=== PATIENT | female | born 1935 | race Caucasian/White ===

== ENCOUNTER 2018-07-08 13:47 | Emergency (ER) | payer MEDICARE, MEDICAID ==
[2018-07-08 13:56] VITALS: BP 180/60
--- NOTE | 2018-07-08 14:33 | XRAY Report ---
Reason: redness, swelling, and pain Procedure Date: 07/08/2018 Accession Number: [id number] / [id number] Procedure: XR - Hand 3 View LT CPT Code: FULL RESULT: EXAM: LEFT HAND RADIOGRAPHY EXAM DATE: 07/08/2018 02:07 PM. CLINICAL HISTORY: Redness, swelling, and pain. COMPARISON: None. TECHNIQUE: 4 views. FINDINGS: Bones: Normal. No fractures or bone lesions. Joints: Normal. No subluxations. Soft Tissues: Moderate diffuse soft tissue swelling is seen. IMPRESSION: Diffuse soft tissue swelling noted. Correlate for possible cellulitis. No underlying bony abnormality. RADIA
--- NOTE | 2018-07-08 14:45 | ED Physician Documentation ---
PD HPI SKIN - Stated complaint Stated Complaint: LT HAND SWELLING - Chief complaint Chief Complaint: Ext Problem - History obtained from History obtained from: Patient, Family (who helps with translation, with consent of the patient.) - History of Present Illness Timing - onset: How many days ago (4) Timing - duration: Days (4) Timing - details: Gradual onset, Still present (no noted injury, and has had increasing redness left hand for 4 days, with swelling. No fevers nor general illness.) Location: LUE (dorsum of hand around the dorsal thenar area mostly) Quality / character: Painful, Discolored, Swelling. No: Vesicular, Draining Associated symptoms: No: Fever, Myalgias Contributing factors: No: Insect bite /sting, Recent illness Similar symptoms before: Has not had sx before Recently seen: Not recently seen Review of Systems Constitutional: denies: Fever, Chills Cardiac: denies: Chest pain / pressure Respiratory: denies: Dyspnea GI: denies: Vomiting, Diarrhea Skin: denies: Abrasion (s), Laceration (s) Neurologic: denies: Focal weakness, Numbness PD PAST MEDICAL HISTORY - Past Medical History Cardiovascular: Hypertension, Peripheral Vascular Disease, Deep vein thrombosis Respiratory: None Endocrine/Autoimmune: None GI: Other : None HEENT: Chronic hearing loss Psych: None Musculoskeletal: Osteoarthritis, Osteoporosis Derm: Other - Past Surgical History Past Surgical History: No - Present Medications Home Medications: Ambulatory Orders Medication Instructions Recorded Confirmed Losartan Potassium 50 mg PO DAILY 04/24/14 05/30/14 Thyroid 05/30/14 05/30/14 Levothyroxine Sodium [Levoxyl] 25 mcg PO DAILY #14 tablet 06/21/14 Cephalexin [Keflex] 500 mg PO Q6H #20 capsule 07/08/18 Hydrocodone/Acetaminophen [[place] 1 each PO Q6H PRN #10 tablet 07/08/18 5-325 Tablet] - Allergies Allergies/Adverse Reactions: Allergies Allergy/AdvReac Type Severity Reaction Status Date / Time ampicillin Allergy Hives Verified 06/21/14 10:31 - Social History Does the pt smoke?: No Smoking Status: Never smoker Does the pt drink ETOH?: No Does the pt have substance abuse?: No - Immunizations Immunizations are current?: No - POLST Patient has POLST: No PD ED PE NORMAL - Vitals Vital signs reviewed: Yes - General General: Alert and oriented X 3, No acute distress, Well developed/nourished - Cardiac Cardiac: RRR, No murmur - Respiratory Respiratory: Clear bilaterally - Derm Derm: Warm and dry - Extremities Extremities: Other (dorsum left hand enar dorsal thenar area with redness, swelling, tender, without skin sores nor FB. Redness and swelling extends to wrist area with faint red streak to mid forearm. No axillary adenopathy. Normal color and cap refill, sensation in fingers. Able to move thumb and index fingers without pain. Tender locally at the redness area. ) - Neuro Neuro: No motor deficit, No sensory deficit Results - Vitals Vitals: Oxygen O2 Source Room air PD MEDICAL DECISION MAKING - ED course Complexity details: considered differential (does not appear generally ill, so can give abx and try outpatient treatment. ), d/w patient, d/w family Departure - Departure Disposition: 01 Home, Self Care Clinical Impression: Cellulitis of left hand Condition: Stable Record reviewed to determine appropriate education?: Yes Instructions: ED Infec Skin Cellulitis Prescriptions: Cephalexin [Keflex] 500 mg PO Q6H #20 capsule Hydrocodone/Acetaminophen [[place] 5-325 Tablet] 1 each PO Q6H PRN #10 tablet PRN Reason: Pain Print Language: Bulgarian Comments: Warm moist towels to the hand periodically to improve blood flow and help fight off the presumed infection. Cephalexin antibiotic 4 times a day for the next 5 days. Continue the Tylenol (acetaminophen) for pain or alternatively hydrocodone as needed for pain in the short-term. Recheck if not improving over the next 2-3 days and return sooner if worsening. Discharge Date/Time: 07/08/18 15:45
[2018-07-08] MEDS ORDERED: cephALEXin 250 MG CAPSULE PO STA (15:11)
[2018-07-08] MEDS ORDERED: HYDROcod/ACETAM 5/325 MG TABLET PO STA (15:11)
== END 2018-07-08 15:45 | disposition home or self-care (01) ==
LOC: ED 13:47
DX: L03.114 Cellulitis of left upper limb (principal); I73.9 Peripheral vascular disease, unspecified; I10 Essential (primary) hypertension; Z86.718 Personal history of other venous thrombosis and embolism
CPT/HCPCS: 73130; 99283; A9270

== ENCOUNTER 2019-08-24 08:00 | Outpatient (CLI) | payer MEDICARE, MEDICAID ==
[2019-08-24 17:47] LABS: BASOPHILS % (AUTO) 0.5 %; EOSINOPHILS # (AUTO) 0.1 10^3/uL (0.0-0.7); EOSINOPHILS % (AUTO) 2.3 %; LYMPHOCYTES # (AUTO) 1.8 10^3/uL (1.5-3.5); LYMPHOCYTES % (AUTO) 29.2 %; MEAN CORPUSCULAR HEMOGLOBIN 31.6 pg (27.0-31.0); MEAN CORPUSCULAR HGB CONC 30.5 g/dL (32.0-36.0); MEAN CORPUSCULAR VOLUME 103.8 fL (81.0-99.0); MEAN PLATELET VOLUME 11.2 fL (7.9-10.8); MONOCYTES # (AUTO) 0.6 10^3/uL (0.0-1.0); MONOCYTES % (AUTO) 9.2 %; NEUTROPHILS # (AUTO) 3.6 10^3/uL (1.5-6.6); NEUTROPHILS % (AUTO) 58.5 %; PLT - PLATELET COUNT 162 10^3/uL (130-450); RED BLOOD COUNT 3.16 10^6/uL (4.20-5.40); RED CELL DISTRIBUTION WIDTH 13.6 % (12.0-15.0); WHITE BLOOD COUNT 6.1 x10^3/uL (4.8-10.8)
[2019-08-24 18:14] LABS: ALBUMIN 3.5 g/dL (3.2-5.5); ALBUMIN/GLOBULIN RATIO 0.9 (1.0-2.2); ALKALINE PHOSPHATASE 50 IU/L (42-121); ALT ALANINE AMINOTRANSFERASE 13 IU/L (10-60); AST ASPARTATE AMINOTRANSFERASE 21 IU/L (10-42); BILIRUBIN,TOTAL 0.6 mg/dL (0.2-1.0); BUN - BLOOD UREA NITROGEN 37 mg/dL (6-20); CALCIUM 8.9 mg/dL (8.5-10.3); CARBON DIOXIDE - CO2 27 mmol/L (21-32); CHLORIDE 106 mmol/L (101-111); CHOL/HDL RATIO 3.6 (<4.4); CHOLESTEROL 153 mg/dL; CREATININE 1.7 mg/dL (0.4-1.0); GLUCOSE 81 mg/dL (70-100); HDL CHOLESTEROL 43 mg/dL; LDL CHOLESTEROL,CALCULATED 95 mg/dL; LDL/HDL RATIO 2.2 (<4.4); SODIUM 142 mmol/L (135-145); TOTAL PROTEIN 7.4 g/dL (6.7-8.2); VLDL CHOLESTEROL 15 mg/dL
[2019-08-24 18:45] LABS: THYROID STIMULATING HORMONE < 0.08 uIU/mL (0.34-5.60)
[2019-08-24 18:47] LABS: FREE T4 (FREE THYROXINE) 0.83 ng/dL (0.58-1.64)
== END 2019-08-24 23:59 | disposition home or self-care (01) ==
LOC: LAB.WCP 08:00
PROVIDERS: ATTEND Family Medicine
DX: E03.9 Hypothyroidism, unspecified (principal)
CPT/HCPCS: 36415; 80053; 80061; 83721; 84439; 84443; 85025

== ENCOUNTER 2019-09-26 07:35 | Outpatient (CLI) | payer MEDICARE, MEDICAID ==
[2019-09-26 13:36] LABS: ABSOLUTE RETICS # AUTO 0.036 10^6/uL (0.020-0.110); BASOPHILS % (AUTO) 0.7 %; EOSINOPHILS # (AUTO) 0.1 10^3/uL (0.0-0.7); EOSINOPHILS % (AUTO) 2.7 %; LYMPHOCYTES # (AUTO) 1.7 10^3/uL (1.5-3.5); LYMPHOCYTES % (AUTO) 39.5 %; MEAN CORPUSCULAR HEMOGLOBIN 32.6 pg (27.0-31.0); MEAN CORPUSCULAR HGB CONC 31.3 g/dL (32.0-36.0); MEAN CORPUSCULAR VOLUME 104.2 fL (81.0-99.0); MEAN PLATELET VOLUME 11.7 fL (7.9-10.8); MONOCYTES # (AUTO) 0.4 10^3/uL (0.0-1.0); MONOCYTES % (AUTO) 8.2 %; NEUTROPHILS # (AUTO) 2.2 10^3/uL (1.5-6.6); NEUTROPHILS % (AUTO) 48.7 %; PLT - PLATELET COUNT 166 10^3/uL (130-450); RED BLOOD COUNT 3.37 10^6/uL (4.20-5.40); RED CELL DISTRIBUTION WIDTH 13.4 % (12.0-15.0); WHITE BLOOD COUNT 4.4 x10^3/uL (4.8-10.8)
[2019-09-26 13:47] LABS: % IRON SATURATION 26 % (20-50); IRON 99 ug/dL (28-170); TOTAL IRON BINDING CAPACITY 375 ug/dL (250-450); TRANSFERRIN 268 mg/dL (192-382)
[2019-09-26 14:22] LABS: FERRITIN 16.3 ng/mL (11.0-306.8)
== END 2019-09-26 23:59 | disposition home or self-care (01) ==
LOC: LAB.WCP 07:35
PROVIDERS: ATTEND Family Medicine
DX: D64.9 Anemia, unspecified (principal)
CPT/HCPCS: 36415; 82607; 82728; 82746; 83540; 84466; 85025; 85045

== ENCOUNTER 2020-03-17 16:14 | Emergency (ER) | payer MEDICARE, MEDICAID ==
--- NOTE | 2020-03-17 17:03 | ED Physician Documentation ---
PD HPI ABD PAIN - Stated complaint Stated Complaint: ABD PAIN - Chief complaint Chief Complaint: Abd Pain - History obtained from History obtained from: Patient, Family - Additional information Additional information: The last 3 days she has not been able to have a bowel movement. She has pain in her rectum and her hips. She also has a longstanding umbilical hernia that hurts a little bit. No fevers, no vomiting. Review of Systems Ten Systems: 10 systems reviewed and negative Constitutional: reports: Reviewed and negative Ears: reports: Reviewed and negative Nose: reports: Reviewed and negative PD PAST MEDICAL HISTORY - Past Medical History Cardiovascular: Hypertension, Peripheral Vascular Disease, Deep vein thrombosis Respiratory: None Endocrine/Autoimmune: None GI: Other : None HEENT: Chronic hearing loss Psych: None Musculoskeletal: Osteoarthritis, Osteoporosis Derm: Other - Past Surgical History Past Surgical History: No - Present Medications Home Medications: Ambulatory Orders Medication Instructions Recorded Confirmed Losartan Potassium 50 mg PO DAILY 04/24/14 05/30/14 Thyroid 05/30/14 05/30/14 Levothyroxine Sodium [Levoxyl] 25 mcg PO DAILY #14 tablet 06/21/14 Cephalexin [Keflex] 500 mg PO Q6H #20 capsule 07/08/18 Hydrocodone/Acetaminophen [[place] 1 each PO Q6H PRN #10 tablet 07/08/18 5-325 Tablet] polyethylene glycoL 3350 [Miralax] 17 gm PO DAILY PRN #1 bottle 03/17/20 - Allergies Allergies/Adverse Reactions: Allergies Allergy/AdvReac Type Severity Reaction Status Date / Time ampicillin Allergy Hives Verified 03/17/20 16:35 - Social History Does the pt smoke?: No Smoking Status: Never smoker Does the pt drink ETOH?: No Does the pt have substance abuse?: No - Immunizations Immunizations are current?: No - POLST Patient has POLST: No PD ED PE NORMAL - Vitals Vital signs reviewed: Yes - General General: Alert and oriented X 3, No acute distress, Other (Hard of hearing) - Cardiac Cardiac: RRR, No murmur - Respiratory Respiratory: No respiratory distress, Clear bilaterally - Abdomen Abdomen: Non tender, Other (Large but easily reducible umbilical hernia that is nontender.) - Rectal Rectal: Other (w [facility], minimal brown stool in vault) - Extremities Extremities: No edema, No calf tenderness / cord (Venous stasis changes) - Psych Psych: Normal mood, Normal affect Results - Vitals Vitals: Vital Signs - 24 hr 03/17/20 03/17/20 03/17/20 16:29 17:40 19:15 Temperature 36.0 C L 37 C Heart Rate 64 71 75 Respiratory 20 16 19 Rate Blood Pressure 149/68 H 189/76 H 177/85 H O2 Saturation 98 94 99 Oxygen O2 Source Room air - Labs Labs: Laboratory Tests 03/17/20 03/17/20 17:35 17:35 WBC 5.0 RBC 3.35 L Hgb 11.2 L Hct 34.5 L MCV 103.0 H MCH 33.4 H MCHC 32.5 RDW 13.3 Plt Count 164 MPV 10.9 H Neut # (Auto) 3.1 Lymph # (Auto) 1.3 L [place] # (Auto) 0.5 Eos # (Auto) 0.1 Baso # (Auto) 0.0 Absolute Nucleated RBC 0.00 Nucleated RBC % 0.0 Sodium 139 Potassium 4.5 Chloride 105 Carbon Dioxide 26 Anion Gap 8.0 BUN 38 H Creatinine 2.1 H Estimated GFR (MDRD) 22 L Glucose 106 H Calcium 9.3 Total Bilirubin 0.7 AST 17 ALT < 10 L Alkaline Phosphatase 52 Total Protein 7.3 Albumin 3.7 Globulin 3.6 Albumin/Globulin Ratio 1.0 Lipase 33 - Rads (name of study) CT A/P Radiology: EMP read contemporaneously (Cholelithiasis, stable periumbilical hernia, stable L1 and L2 compression deformities) PD MEDICAL DECISION MAKING - ED course ED course: The history sounded most like a fecal impaction, however there was no significant stool in the vault on rectal exam. Radiologist felt that the CT showed no significant stool load, however to my eye there was a fecal impaction that was just outside of fingers length. A enema was done and she did have a large bowel movement and felt much better. Her renal function is fairly stable compared to prior values. Departure - Departure Disposition: 01 Home, Self Care Clinical Impression: Fecal impaction Condition: Good Record reviewed to determine appropriate education?: Yes Instructions: ED Impaction Fecal Treated Prescriptions: polyethylene glycoL 3350 [Miralax] 17 gm PO DAILY PRN #1 bottle PRN Reason: Constipation Comments: She does have a gallstone which might bother her some day, but today she had the large ball of stool which we were able to get out with resolution of her pain. Return if worsening. Follow-up with your physician. Discharge Date/Time: 03/17/20 19:32
[2020-03-17 17:49] LABS: BASOPHILS % (AUTO) 0.4 %; EOSINOPHILS # (AUTO) 0.1 10^3/uL (0.0-0.7); EOSINOPHILS % (AUTO) 1.2 %; HGB - HEMOGLOBIN 11.2 g/dL (12.0-16.0); LYMPHOCYTES # (AUTO) 1.3 10^3/uL (1.5-3.5); LYMPHOCYTES % (AUTO) 26.8 %; MEAN CORPUSCULAR HEMOGLOBIN 33.4 pg (27.0-31.0); MEAN CORPUSCULAR HGB CONC 32.5 g/dL (32.0-36.0); MEAN PLATELET VOLUME 10.9 fL (7.9-10.8); MONOCYTES # (AUTO) 0.5 10^3/uL (0.0-1.0); MONOCYTES % (AUTO) 9.3 %; NEUTROPHILS # (AUTO) 3.1 10^3/uL (1.5-6.6); NEUTROPHILS % (AUTO) 61.9 %; PLT - PLATELET COUNT 164 10^3/uL (130-450); RED BLOOD COUNT 3.35 10^6/uL (4.20-5.40); RED CELL DISTRIBUTION WIDTH 13.3 % (12.0-15.0)
[2020-03-17 18:07] LABS: ALBUMIN 3.7 g/dL (3.2-5.5); ALKALINE PHOSPHATASE 52 IU/L (42-121); ALT ALANINE AMINOTRANSFERASE < 10 IU/L (10-60); AST ASPARTATE AMINOTRANSFERASE 17 IU/L (10-42); BILIRUBIN,TOTAL 0.7 mg/dL (0.2-1.0); BUN - BLOOD UREA NITROGEN 38 mg/dL (6-20); CALCIUM 9.3 mg/dL (8.5-10.3); CARBON DIOXIDE - CO2 26 mmol/L (21-32); CHLORIDE 105 mmol/L (101-111); CREATININE 2.1 mg/dL (0.4-1.0); GLUCOSE 106 mg/dL (70-100); LIPASE 33 U/L (22-51); SODIUM 139 mmol/L (135-145); TOTAL PROTEIN 7.3 g/dL (6.7-8.2)
--- NOTE | 2020-03-17 19:06 | CT Report ---
PROCEDURE: Abdomen/Pelvis WO INDICATIONS: abd pain TECHNIQUE: Noncontrast 5 mm thick sections acquired from the diaphragms to the symphysis. 5 mm coronal and sagi ttal reformats were then performed. For radiation dose reduction, the following was used: automated exposure control, adjustment of mA and/or kV according to patient size. COMPARISON: 05/30/2014 FINDINGS: Image quality: Excellent. ABDOMEN: Lung bases: Lung bases are clear. Heart size is normal. Prominent tortuosity is seen of the visual ized lower thoracic aorta. Solid organs: Liver and spleen are normal in size. Gallbladder demonstrates a gallstone within its lumen, as on series 3 image 29. Pancreas is normal in contours. No adrenal nodules. Kidneys are no rmal in size, without nephrolithiasis. Mild bilateral hydronephrosis and hydroureter can be seen, wh ich is similar to 2015. Peritoneum and bowel: Unenhanced bowel loops demonstrate normal wall thickness and caliber. No free fluid or air. No abnormal stool burden can be seen within the colon. A normal appendix is incidenta lly noted. Nodes and vessels: No retroperitoneal or mesenteric adenopathy by size criteria. Aorta and inferior vena cava are normal in caliber. Miscellaneous: There is a periumbilical hernia seen, which contains fat and nondilated small bowel, w hich is similar to 2015. PELVIS: Genitourinary: Bladder wall thickness is normal. Miscellaneous: No inguinal hernias or adenopathy. Bones: No suspicious bony lesions. No vertebral body compression fractures. Relatively prominent lo wer lumbar spine degenerative changes are seen. Mild stable L1 and L2 compression deformities are see n. IMPRESSION: A gallstone is seen within the gallbladder. If there is strong clinical concern for occult pathology in this patient with a presenting history of abdominal pain, then please consider a dedicated right u pper quadrant ultrasound for further evaluation. Stable periumbilical hernia, which contains fat and nondilated small bowel. No abnormal stool burden can be seen within the colon. Incidental note is made of: Stable L1 and L2 compression deformities Normal appendix Reviewed by: Christofer Alvarez MD on 03/17/2020 6:05 PM AKST Approved by: Christofer Alvarez MD on 03/17/2020 6:05 PM AK Station ID: [id number]
[2020-03-17 19:17] VITALS: BP 177/85
== END 2020-03-17 19:32 | disposition home or self-care (01) ==
LOC: ED 16:14
DX: K56.41 Fecal impaction (principal); K80.80 Other cholelithiasis without obstruction; I10 Essential (primary) hypertension; I73.9 Peripheral vascular disease, unspecified; I82.409 Acute embolism and thrombosis of unspecified deep veins of unspecified lower extremity; K42.9 Umbilical hernia without obstruction or gangrene
CPT/HCPCS: 36415; 74176; 80053; 83690; 85025; 99284

== ENCOUNTER 2021-06-18 09:50 | Outpatient (CLI) | payer MEDICARE, MEDICAID ==
[2021-06-18 12:20] LABS: BASOPHILS % (AUTO) 0.8 %; EOSINOPHILS # (AUTO) 0.2 10^3/uL (0.0-0.7); EOSINOPHILS % (AUTO) 4.3 %; HCT - HEMATOCRIT 33.6 % (37.0-47.0); HGB - HEMOGLOBIN 10.6 g/dL (12.0-16.0); LYMPHOCYTES # (AUTO) 1.5 10^3/uL (1.5-3.5); LYMPHOCYTES % (AUTO) 31.1 %; MEAN CORPUSCULAR HEMOGLOBIN 31.6 pg (27.0-31.0); MEAN CORPUSCULAR HGB CONC 31.5 g/dL (32.0-36.0); MEAN CORPUSCULAR VOLUME 100.3 fL (81.0-99.0); MEAN PLATELET VOLUME 11.6 fL (7.9-10.8); MONOCYTES # (AUTO) 0.5 10^3/uL (0.0-1.0); MONOCYTES % (AUTO) 10.9 %; NEUTROPHILS # (AUTO) 2.6 10^3/uL (1.5-6.6); NEUTROPHILS % (AUTO) 52.5 %; PLT - PLATELET COUNT 170 10^3/uL (130-450); RED BLOOD COUNT 3.35 10^6/uL (4.20-5.40); RED CELL DISTRIBUTION WIDTH 14.6 % (12.0-15.0); WHITE BLOOD COUNT 4.9 x10^3/uL (4.8-10.8)
[2021-06-18 13:26] LABS: ESTIMATED AVERAGE GLUCOSE 120 mg/dL (70-100); HEMOGLOBIN A1c% 5.8 % (4.27-6.07)
[2021-06-18 13:40] LABS: ALBUMIN 3.3 g/dL (3.2-5.5); ALBUMIN/GLOBULIN RATIO 0.9 (1.0-2.2); ALKALINE PHOSPHATASE 46 IU/L (42-121); ALT ALANINE AMINOTRANSFERASE < 10 IU/L (10-60); AST ASPARTATE AMINOTRANSFERASE 18 IU/L (10-42); BILIRUBIN,TOTAL 0.6 mg/dL (0.2-1.0); BUN - BLOOD UREA NITROGEN 38 mg/dL (6-20); CALCIUM 9.2 mg/dL (8.5-10.3); CARBON DIOXIDE - CO2 29 mmol/L (21-32); CHLORIDE 105 mmol/L (101-111); CHOL/HDL RATIO 3.5 (<4.4); CHOLESTEROL 176 mg/dL; CREATININE 2.2 mg/dL (0.4-1.0); GFR - MDRD 21 (>89); GLUCOSE 93 mg/dL (70-100); HDL CHOLESTEROL 50 mg/dL; LDL CHOLESTEROL,CALCULATED 105 mg/dL; LDL/HDL RATIO 2.1 (<4.4); POTASSIUM 4.8 mmol/L (3.5-5.0); SODIUM 140 mmol/L (135-145); TOTAL PROTEIN 7.1 g/dL (6.7-8.2); TRIGLYCERIDES 107 mg/dL; VLDL CHOLESTEROL 21 mg/dL
[2021-06-18 13:44] LABS: THYROID STIMULATING HORMONE 1.22 uIU/mL (0.34-5.60)
[2021-06-18 13:45] LABS: FREE T3 2.47 pg/mL (2.5-3.9)
[2021-06-18 13:46] LABS: FREE T4 (FREE THYROXINE) 0.73 ng/dL (0.58-1.64)
== END 2021-06-18 09:51 | disposition home or self-care (01) ==
LOC: LAB.N 09:50
PROVIDERS: ATTEND Physician Assistant
DX: N18.4 Chronic kidney disease, stage 4 (severe) (principal); Z13.220 Encounter for screening for lipoid disorders; Z13.1 Encounter for screening for diabetes mellitus; E03.9 Hypothyroidism, unspecified; D64.9 Anemia, unspecified
CPT/HCPCS: 36415; 80053; 80061; 83036; 83721; 84439; 84443; 84481; 85025

== ENCOUNTER 2021-08-04 09:03 | Outpatient (CLI) | payer MEDICARE, MEDICAID | END 2021-08-04 09:04 | disposition critical access hospital (66) | LOC: EMS 09:03 | DX: S99.921A Unspecified injury of right foot, initial encounter (principal); W18.30XA Fall on same level, unspecified, initial encounter; Y92.003 Bedroom of unspecified non-institutional (private) residence as the place of occurrence of the external cause | CPT/HCPCS: A0425; A0427 ==

== ENCOUNTER 2021-08-04 09:25 | Emergency (ER) | payer MEDICARE, MEDICAID ==
[2021-08-04] MEDS ORDERED: fentaNYL 100 MCG/2 ML VIAL IVP PRN (09:54)
[2021-08-04] MEDS ORDERED: ONDANSETRON 4 MG/2 ML VIAL IVP STA (09:54)
--- NOTE | 2021-08-04 10:21 | XRAY Report ---
PROCEDURE: Foot 3 View RT INDICATIONS: fall, soft tissue swelling, dorsum of foot TECHNIQUE: 3 views of the foot were acquired. COMPARISON: None. FINDINGS: BONES: Mildly displaced fractures of the proximal aspect, first and fifth metatarsals. Diffuse osteop enia. Prominent dorsal calcaneal enthesophyte. SOFT TISSUES: Diffuse soft tissue swelling. IMPRESSION: 1.Mildly displaced fractures of the first and fifth metatarsals. Reviewed by: Jose Eduardo Alberto MD on 08/04/2021 10:19 AM PDT Approved by: Jose Eduardo Alberto MD on 08/04/2021 10:19 AM PDT Station ID: [id number]
--- NOTE | 2021-08-04 10:39 | CT Report ---
PROCEDURE: HEAD WO INDICATIONS: GLF TECHNIQUE: Noncontrast 4.5 mm thick angled axial sections acquired from the foramen magnum to the vertex. For r adiation dose reduction, the following was used: automated exposure control, adjustment of mA and/or kV according to patient size. COMPARISON: None. FINDINGS: Image quality: Excellent. CSF spaces: Basal cisterns are patent. No extra-axial fluid collections. Ventricles are normal in size and shape. Brain: No midline shift. No intracranial masses or hemorrhage. Grissom-white matter interface is norm al. Skull and face: Calvarium and visualized facial bones are intact, without suspicious lesions. Sinuses: Visualized sinuses and mastoids are clear. IMPRESSION: No acute intracranial abnormality. Global cerebral volume loss and chronic microvascular ischemic changes. Reviewed by: Brenden Stubbs MD on 08/04/2021 10:38 AM PDT Approved by: Brenden Stubbs MD on 08/04/2021 10:38 AM PDT Station ID: [id number]
--- NOTE | 2021-08-04 10:40 | CT Report ---
PROCEDURE: CERVICAL SPINE WO INDICATIONS: GLF TECHNIQUE: Noncontrast 3 mm thick sections acquired from the skull base to the T4 level. Sagittal and coronal r eformats were then constructed. For radiation dose reduction, the following was used: automated exp osure control, adjustment of mA and/or kV according to patient size. COMPARISON: None. FINDINGS: Image quality: Excellent. Bones: No fractures or dislocations. Mild to moderate degenerative changes throughout the cervical s pine. Visualized superior ribs are intact. Soft tissues: Prevertebral soft tissues are normal in thickness. No paravertebral hematomas. No ap ical pneumothoraces. IMPRESSION: No CT evidence of acute traumatic cervical spine injury. Reviewed by: Brenden Stubbs MD on 08/04/2021 10:39 AM PDT Approved by: Brenden Stubbs MD on 08/04/2021 10:39 AM PDT Station ID: [id number]
--- NOTE | 2021-08-04 11:26 | ED Physician Documentation ---
PD HPI LOWER EXT INJURY - Stated complaint Stated Complaint: GLF - Chief complaint Chief Complaint: Trauma Ext - Additional information Additional information: Patient is 86-year-old female presenting to the emergency department after ground-level fall that occurred this morning. Accompanied by [id number] who is present at bedside. Patient is extremely hard of hearing and primary Yoruba speaker. Translation was accomplished with the assistance of the [id number] as patient was unable to hear the video translation service. [id number] reports patient had a mechanical fall this morning while putting on her slippers. Past medical significant for a hip fracture due to a similar fall several months ago. Ordinarily ambulates with assistance of walker. Denies use of blood thinning medications. Reports pain associated with the right foot but denies any other acute issues at this time. Review of Systems Ten Systems: 10 systems reviewed and negative Constitutional: denies: Fever Eyes: denies: Loss of vision Ears: denies: Loss of hearing Nose: denies: Rhinorrhea / runny nose Throat: denies: Dental pain / toothache Cardiac: denies: Chest pain / pressure GI: denies: Abdominal Pain : denies: Dysuria Skin: denies: Rash PD PAST MEDICAL HISTORY - Past Medical History Past Medical History: Yes Cardiovascular: Hypertension, Peripheral Vascular Disease, Deep vein thrombosis Respiratory: None Endocrine/Autoimmune: None GI: Other : None HEENT: Chronic hearing loss Psych: None Musculoskeletal: Osteoarthritis, Osteoporosis Derm: Other - Past Surgical History Past Surgical History: No - Present Medications Home Medications: Ambulatory Orders Medication Instructions Recorded Confirmed Levothyroxine Sodium [Levoxyl] 25 mcg PO DAILY #14 tablet 06/21/14 08/04/21 HYDROcod/ACETAM 5/325 [[place] 5/325] 1 - 2 ea PO Q6H PRN #14 tablet 08/04/21 - Allergies Allergies/Adverse Reactions: Allergies Allergy/AdvReac Type Severity Reaction Status Date / Time ampicillin Allergy Hives Verified 08/04/21 09:42 - Social History Does the pt smoke?: No Smoking Status: Never smoker Does the pt drink ETOH?: No Does the pt have substance abuse?: No - Immunizations Immunizations are current?: No - POLST Patient has POLST: No PD ED PE NORMAL - General General: Alert and oriented X 3, No acute distress - HEENT HEENT: Atraumatic - Neck Neck: Supple, no meningeal sign, No bony TTP - Cardiac Cardiac: RRR, No murmur, No gallop, Strong equal pulses - Respiratory Respiratory: No respiratory distress, Clear bilaterally - Abdomen Abdomen: Normal bowel sounds, Non tender - Female Female : Deferred - Rectal Rectal: Deferred - Back Back: No spinal TTP - Derm Derm: Normal color - Extremities Extremities: Other (Prominent soft tissue swelling over the dorsum of the right foot.) Results - Vitals Vitals: Vital Signs - 24 hr 08/04/21 08/04/21 08/04/21 09:36 11:42 12:35 Temperature 36.8 C Heart Rate 58 L 58 L 59 L Respiratory 16 22 20 Rate Blood Pressure 180/60 H 129/118 H 122/99 H O2 Saturation 96 100 100 Oxygen O2 Source Room air PD MEDICAL DECISION MAKING - ED course Complexity details: reviewed results, d/w patient, d/w family ED course: Patient is 86-year-old female presenting to the emergency department after ground-level fall with swelling and pain associated with her right foot. Afebrile, hemodynamic stable on arrival to the emergency department. Patient was significantly hard of hearing and was unable to use video translation services for this reason. Translation was accomplished with the help of her [id number]-vey. CT head and C-spine nonacute.X-ray of the foot demonstrated both first and fifth metatarsal fractures. Patient was placed in posterior short with stirrup splint in the emergency department. She is ordinarily ambulatory with the assistance of a walker. Will write for wheelchair for use by the family. Pain medication sent to patient's preferred pharmacy. Given follow-up instructions with orthopedics. Otherwise clear return precautions and follow-up instructions given prior to discharge. Departure - Departure Disposition: 01 Home, Self Care Clinical Impression: Fracture of first metatarsal bone, Fracture of fifth metatarsal bone Instructions: ED Fx Foot Follow-Up: Bright French MD [Provider Admit Priv/Credential] - Prescriptions: HYDROcod/ACETAM 5/325 [[place] 5/325] 1 - 2 ea PO Q6H PRN #14 tablet PRN Reason: Pain Comments: Thank you for allowing us to care for Jocelin today at [facility]. The x-rays of her right foot showed 2 broken bones, specifically she has broken her first and fifth metatarsals. She was provided a splint here in the emergency department. Its important that she remain nonweightbearing at home until she has an opportunity to be seen by both her primary care doctor as well as with an wildfire prevention specialist. I have included a phone number for an wildfire prevention specialist in your discharge packet. Please Contact these individuals as soon as possible in order to make an appointment for medical reevaluation. I have also sent some medication for pain to your preferred pharmacy. Please be sparing in the use of this medication. I recommend use of a pill splitter to take half doses only as needed for pain control. Elevating the injured extremity and applying ice packs are also excellent strategies for decreasing swelling and thereby decreasing pain at home. If it anytime or he has any new or worsening symptoms was not hesitate to return to the emergency department. Discharge Date/Time: 08/04/21 12:35
[2021-08-04 12:35] VITALS: BP 122/99
== END 2021-08-04 12:35 | disposition home or self-care (01) ==
LOC: EDUNIT# → ED 09:25
DX: S92.311A Displaced fracture of first metatarsal bone, right foot, initial encounter for closed fracture (principal); S92.351A Displaced fracture of fifth metatarsal bone, right foot, initial encounter for closed fracture; W19.XXXA Unspecified fall, initial encounter
CPT/HCPCS: 96374; 96375; 99283

== ENCOUNTER 2021-08-11 10:15 | Outpatient (CLI) | payer MEDICARE, MEDICAID ==
--- NOTE | 2021-08-11 12:13 | XRAY Report ---
PROCEDURE: Foot 3 View LT INDICATIONS: FOOT PAIN TECHNIQUE: 3 views of the foot were acquired. COMPARISON: 3 views of the foot dated 08/04/2021 FINDINGS: Bones: Fifth and first metatarsal fractures are redemonstrated. Fracture fragments are in unchanged a natomic alignment. Some periosteal reaction is noted at the first metatarsal suggesting early interva l healing. Soft tissues: No tibiotalar joint effusion. Achilles tendon appears normal. IMPRESSION: Early interval healing of the first metatarsal fracture and unchanged appearance of the fifth metatar maia fracture. Fracture fragments are in unchanged anatomic alignment. Reviewed by: Ariane Mattson MD on 08/11/2021 12:12 PM PDT Approved by: Ariane Mattson MD on 08/11/2021 12:12 PM PDT Station ID: [id number]
== END 2021-08-11 23:59 | disposition home or self-care (01) ==
LOC: DI.WOS 10:15
PROVIDERS: ATTEND Orthopaedic Surgery
DX: S92.312D Displaced fracture of first metatarsal bone, left foot, subsequent encounter for fracture with routine healing (principal); S92.352D Displaced fracture of fifth metatarsal bone, left foot, subsequent encounter for fracture with routine healing

== ENCOUNTER 2021-09-15 08:00 | Outpatient (CLI) | payer MEDICARE, MEDICAID ==
--- NOTE | 2021-09-15 09:40 | XRAY Report ---
PROCEDURE: Foot 3 View RT INDICATIONS: RIGHT FOOT FX TECHNIQUE: 3 views of the foot were acquired. COMPARISON: 08/04/2021 FINDINGS: Bones: Decreased mineralization. Healing, minimally displaced fracture of the first metatarsal base. First TMT articulation appears in normal alignment laterally, but there is slight superior subluxatio n on the lateral view.. There is minimal distraction of fracture fragments seen dorsally. Additionall y, there is healing of a nondisplaced fifth metatarsal base fracture without displacement of fracture fragments. Questionable nondisplaced, subacute transverse fourth metatarsal base fracture. There is mild pes planus deformity with weightbearing. There is hallux varus deformity at the third through fi fth proximal interphalangeal joints. Soft tissues: No tibiotalar joint effusion. Achilles tendon appears normal. Dorsal skin thickening over the midfoot. IMPRESSION: 1. Healing of the first, fifth, and possibly fourth metatarsal base fracture. 2. Slight superior subluxation of the first TMT joint. 3. Pes planus deformity with weightbearing. 4. Moderate hallux varus at the third through fifth PIP joints. Reviewed by: Roshni Urbano MD on 09/15/2021 9:38 AM PDT Approved by: Roshin Urbano MD on 09/15/2021 9:38 AM PDT Station ID: [id number]
== END 2021-09-15 23:59 | disposition home or self-care (01) ==
LOC: DI.WOS 08:00
PROVIDERS: ATTEND Orthopaedic Surgery
DX: S92.311D Displaced fracture of first metatarsal bone, right foot, subsequent encounter for fracture with routine healing (principal); S92.351D Displaced fracture of fifth metatarsal bone, right foot, subsequent encounter for fracture with routine healing; S93.321A Subluxation of tarsometatarsal joint of right foot, initial encounter; M21.41 Flat foot [pes planus] (acquired), right foot; M20.31 Hallux varus (acquired), right foot

== ENCOUNTER 2022-09-21 10:04 | Outpatient (CLI) | payer MEDICARE, MEDICAID ==
[2022-09-21 12:10] LABS: BASOPHILS % (AUTO) 0.6 %; EOSINOPHILS # (AUTO) 0.1 10^3/uL (0.0-0.7); EOSINOPHILS % (AUTO) 2.9 %; HCT - HEMATOCRIT 31.5 % (37.0-47.0); LYMPHOCYTES # (AUTO) 1.7 10^3/uL (1.5-3.5); LYMPHOCYTES % (AUTO) 35.5 %; MEAN CORPUSCULAR HEMOGLOBIN 32.5 pg (27.0-31.0); MEAN CORPUSCULAR HGB CONC 31.7 g/dL (32.0-36.0); MEAN CORPUSCULAR VOLUME 102.3 fL (81.0-99.0); MEAN PLATELET VOLUME 10.9 fL (7.9-10.8); MONOCYTES # (AUTO) 0.4 10^3/uL (0.0-1.0); MONOCYTES % (AUTO) 8.5 %; NEUTROPHILS # (AUTO) 2.5 10^3/uL (1.5-6.6); NEUTROPHILS % (AUTO) 52.3 %; PLT - PLATELET COUNT 167 10^3/uL (130-450); RED BLOOD COUNT 3.08 10^6/uL (4.20-5.40); WHITE BLOOD COUNT 4.9 x10^3/uL (4.8-10.8)
[2022-09-21 12:34] LABS: ALBUMIN 3.5 g/dL (3.2-5.5); ALBUMIN/GLOBULIN RATIO 0.9 (1.0-2.2); ALKALINE PHOSPHATASE 45 IU/L (42-121); ALT ALANINE AMINOTRANSFERASE < 10 IU/L (10-60); AST ASPARTATE AMINOTRANSFERASE 15 IU/L (10-42); BILIRUBIN,TOTAL 0.7 mg/dL (0.2-1.0); BUN - BLOOD UREA NITROGEN 50 mg/dL (6-20); CALCIUM 9.1 mg/dL (8.5-10.3); CARBON DIOXIDE - CO2 29 mmol/L (21-32); CHLORIDE 111 mmol/L (101-111); CHOL/HDL RATIO 3.2 (<4.4); CHOLESTEROL 165 mg/dL; CREATININE 2.3 mg/dL (0.4-1.0); GFR - MDRD 20 (>89); GLUCOSE 88 mg/dL (70-100); HDL CHOLESTEROL 51 mg/dL; LDL CHOLESTEROL,CALCULATED 96 mg/dL; LDL/HDL RATIO 1.9 (<4.4); POTASSIUM 5.1 mmol/L (3.5-5.0); SODIUM 144 mmol/L (135-145); TOTAL PROTEIN 7.5 g/dL (6.7-8.2); TRIGLYCERIDES 89 mg/dL; VLDL CHOLESTEROL 18 mg/dL
[2022-09-21 12:35] LABS: THYROID STIMULATING HORMONE 13.72 uIU/mL (0.34-5.60)
[2022-09-21 13:06] LABS: FREE T4 (FREE THYROXINE) 0.47 ng/dL (0.58-1.64)
== END 2022-09-21 10:05 | disposition home or self-care (01) ==
LOC: LAB.N 10:04
PROVIDERS: ATTEND Physician Assistant
DX: N18.4 Chronic kidney disease, stage 4 (severe) (principal); Z13.220 Encounter for screening for lipoid disorders; E03.9 Hypothyroidism, unspecified; R03.0 Elevated blood-pressure reading, without diagnosis of hypertension
CPT/HCPCS: 36415; 80053; 80061; 83721; 84439; 84443; 85025